=== PATIENT | female | born 1945 | race Caucasian/White ===

== ENCOUNTER 2016-08-02 16:39 | Inpatient (IN) | payer MEDICARE, BC ==
[~2016-08-02] VITALS: Ht 154.9 cm; Wt 50.8 kg
[2016-08-02] VITALS (273 sets, daily range): BP systolic 172; BP diastolic 90–91; PULSE 114; TEMP 98; O2SAT 84–100
[~2016-08-02 16:39] MED LIST: ADVAIR 250/28 DISKU1 IH; AEROSOL THERAPY1 DEV; ALEVE220 MG PO; AMOXICILLIN 8751 TAB PO; ARCAPTA IH; ASMANEX TW0.22 MG/A1 IH; ASPIRIN 32325 MG/TAB PO; ASPIRIN E.C. 8181 MG PO; ASTHMANEX INH; ATROVENT I0.2 MG/1 M IH; BIOTENE MOIST44.3 ML PO; CARVEDILOL12.5 MG PO; CEFTIN 250250 MG/TAB PO; CELEXA 20MG20 MG/TAB PO; CELEXA40 MG PO; CITALOPRAM10 MG PO; CITALOPRAM20 MG PO; CLINDAMYCIN300 MG PO; CLONAZEPAM1 MG PO; COMBIVENT1 ARO IH; DALIRESP500 MCG PO; DUONEB 3 MG/3 ML3 ML IH; ENSURE PO; FLONASE NASAL S16 GM NS; GABAPENTIN100 M1 PO; IPRATROPIUM BROM3 M1 IH; KLONOPIN 1MG1 MG PO; KLONOPIN WAFERS1 MG PO; KLONOPIN2 MG PO; LEVAQUIN 750MG750 M1 PO; LIDODERM PATCH TP; LIPITOR 10MG10 MG PO; MECLIZINE25 MG PO; MUCINEX 60600 MG/TA1 PO; MUCINEX600 M1 PO; MULTIPLE VITAMI1 CAP PO; NAPROSYN 2250 MG/TAB PO; NORCO 325 MG-51 TAB PO; OMEPRAZOLE20 MG PO; OXYCODONE5 M1 PO; OXYCODONE5 MG PO; PERCOCET 325 MG1 TA2; PERCOCET 325 MG1 TA2 PO; PERCR 7.5 PO; PERFOROMIS20 MCG/2 M IH; PILOCARPINE; PILOCARPINE 4% OP; PREDNISONE 5MG5 MG PO; PREDNISONE20 MG PO; PRILOSEC 20MG20 MG PO; PROVENTIL0.09 MG/A1 IH; PROVENTIL0.09 MG/AC IH; PULMICORT0.25 MG/2 IH; PULMICORT0.5 MG/2 M IH; REMERON 15M15 MG/TA1 PO; RT SPIRIVA18 MCG IH; SIMVASTATIN20 MG PO; SINGULAIR 110 MG/TAB PO; SINGULAIR10 MG PO; STOOL SOFTNER; TENORMIN 2525 MG/TAB PO; THEOPHYLLINE PO; TRIAZOLAM0.25 MG PO; TUDORZA IH; VALTREX1 GM PO; VENTOLIN0.09 MG IH; ZITHROMAX Z PA250 MG PO; ZOCOR 20MG20 MG PO; ZOFRAN 4MG T4 MG/TAB PO; [UNRECOGNIZED DRUG - OTHER] INH; [UNRECOGNIZED DRUG - OTHER] INH; [UNRECOGNIZED DRUG - OTHER] OP; asthmanex INH
[2016-08-02 16:58] LABS: ARTERIAL BLD GAS O2 SATURATION 97.1 % (92-100); ARTERIAL BLD GAS TCO2 CT 34.1; ARTERIAL BLOOD GAS BASE EXCESS 4.2 (-2-2); ARTERIAL BLOOD GAS HCO3 32.1 meq/L (22-26); ARTERIAL BLOOD GAS PHT 7.32 C (7.35-7.45); ARTERIAL BLOOD GAS PO2 103.7 mmHg (80-100); ARTERIAL BLOOD GAS PO2T 103.7 (80-100); ARTERIAL BLOOD GAS pH 7.32 (7.35-7.45); OXYHEMOGLOBIN 93.9 %
[2016-08-02 16:59] LABS: ATS? YES
[2016-08-02 17:04] LABS: BASO % 0.5 % (0.0-2.0); EOS # 0.3 (0.0-0.7); EOS % 3.7 % (0-4.0); GRAN # 5.8 (1.4-6.5); GRAN % 69.4 % (42.2-75.2); HEMATOCRIT 38.9 % (37.0-47.0); HEMOGLOBIN 13.2 g/dl (12.5-16.0); LYMPH # 1.3 (1.2-3.4); LYMPH % 15.9 % (20.0-51.0); MEAN CELL VOLUME 95 fl (80.0-100.0); MEAN CORPUSCULAR HEMOGLOBIN 32 pg (27.0-31.0); MEAN CORPUSCULAR HGB CONC 34 g/dl (33.0-37.0); MEAN PLATELET VOLUME 9.4 fl (7.4-10.4); MONO # 0.9 (0.1-0.6); MONO % 10.3 % (1.7-9.3); PLATELET COUNT 317 K/mm3 (130-400); RED BLOOD COUNT 4.09 M/mm3 (4.10-5.30); REDCELL DISTRIBUTION WIDTH-CV 12.1 % (11.5-14.5); WHITE BLOOD COUNT 8.4 K/mm3 (4.8-10.8)
[2016-08-02 17:05] LABS: PROTHROMBIN TIME 10.6 SECONDS (9.7-12.8)
[2016-08-02 17:14] LABS: ADJUSTED CALCIUM 9.1 mg/dL (8.4-10.2); ALBUMIN 4.1 gm/dL (3.5-5.0); BILIRUBIN,TOTAL 0.9 mg/dL (0.0-1.0); CALCIUM 9.2 mg/dL (8.4-10.2); CREATININE, serum 0.42 mg/dL (0.52-1.25); POTASSIUM 4.7 mmol/L (3.4-5.0); TOTAL PROTEIN 7.2 gm/dL (6.4-8.2)
[2016-08-02 17:25] LABS: TROPONIN-I 0.014 ng/mL (0.000-0.034)
[2016-08-02] MEDS ORDERED: COLACE 100100 MG/CAP PO (17:28)
[2016-08-02] MEDS ORDERED: PERFOROMIS20 MCG/2 M IH (17:29)
[2016-08-02] MEDS ORDERED: ASPIRIN E.C. 8181 MG PO (17:40)
[2016-08-02] MEDS ORDERED: KLONOPIN 0.5MG0.5 MG PO (17:41)
[2016-08-02] MEDS ORDERED: CALAN120 MG PO (17:41)
[2016-08-02] MEDS ORDERED: SPIRIVA RE2.5 MCG/Ac IH (17:42)
[2016-08-02] MEDS ORDERED: NAPROSYN 2250 MG/TAB PO (17:44)
[2016-08-02 19:20] LABS: ARTERIAL BLD GAS O2 SATURATION 94.8 % (92-100); ARTERIAL BLD GAS TCO2 CT 32.7; ARTERIAL BLOOD GAS HCO3 30.8 meq/L (22-26); ARTERIAL BLOOD GAS PHT 7.31 C (7.35-7.45); ARTERIAL BLOOD GAS pH 7.31 (7.35-7.45); OXYHEMOGLOBIN 92.2 %
[2016-08-02 19:21] LABS: ALLEN TEST YES; ALLENS TEST RESULT PASS; ATS? YES
[2016-08-03] VITALS (1294 sets, daily range): BP systolic 130–155; BP diastolic 70–84; PULSE 95–110; TEMP 95.2–99; O2SAT 70–100
[2016-08-03 01:04] LABS: ARTERIAL BLD GAS O2 SATURATION 91.3 % (92-100); ARTERIAL BLD GAS TCO2 CT 31.9; ARTERIAL BLOOD GAS BASE EXCESS 0.9 (-2-2); ARTERIAL BLOOD GAS HCO3 29.8 meq/L (22-26); ARTERIAL BLOOD GAS PHT 7.26 C (7.35-7.45); ARTERIAL BLOOD GAS PO2 65.8 mmHg (80-100); ARTERIAL BLOOD GAS PO2T 65.8 (80-100); ARTERIAL BLOOD GAS pH 7.26 (7.35-7.45); OXYHEMOGLOBIN 89.5 %
[2016-08-03 01:07] LABS: ALLEN TEST YES; ALLENS TEST RESULT PASS; ATS? YES
[2016-08-03 03:14] LABS: ARTERIAL BLD GAS O2 SATURATION 94.3 % (92-100); ARTERIAL BLD GAS TCO2 CT 31.6; ARTERIAL BLOOD GAS BASE EXCESS -0.4 (-2-2); ARTERIAL BLOOD GAS HCO3 29.3 meq/L (22-26); ARTERIAL BLOOD GAS PHT 7.22 C (7.35-7.45); ARTERIAL BLOOD GAS PO2 78.2 mmHg (80-100); ARTERIAL BLOOD GAS PO2T 78.2 (80-100); ARTERIAL BLOOD GAS pH 7.22 (7.35-7.45); OXYHEMOGLOBIN 92.8 %
[2016-08-03 03:16] LABS: ALLEN TEST YES; ALLENS TEST RESULT PASS; ATS? YES
[2016-08-03 04:23] LABS: PH 6 (5-8); URINE APPEARANCE Hazy; URINE BACTERIA Rare /hpf; URINE BILIRUBIN Negative (NEGATIVE); URINE BLOOD 1+ (NEGATIVE); URINE COLOR Yellow; URINE GLUCOSE Negative (NEGATIVE); URINE KETONE 1+ (NEGATIVE); URINE UROBILINOGEN Negative (NEGATIVE); URINE WBC 0-2 /hpf
[2016-08-03 05:34] LABS: HEMATOCRIT 39.1 % (37.0-47.0); HEMOGLOBIN 13.1 g/dl (12.5-16.0); MEAN CELL VOLUME 97 fl (80.0-100.0); MEAN CORPUSCULAR HEMOGLOBIN 33 pg (27.0-31.0); MEAN CORPUSCULAR HGB CONC 34 g/dl (33.0-37.0); MEAN PLATELET VOLUME 9.2 fl (7.4-10.4); PLATELET COUNT 289 K/mm3 (130-400); RED BLOOD COUNT 4.03 M/mm3 (4.10-5.30); REDCELL DISTRIBUTION WIDTH-CV 12.3 % (11.5-14.5); WHITE BLOOD COUNT 3.6 K/mm3 (4.8-10.8)
[2016-08-03 05:35] LABS: ARTERIAL BLD GAS O2 SATURATION 96.7 % (92-100); ARTERIAL BLD GAS TCO2 CT 30.3; ARTERIAL BLOOD GAS BASE EXCESS 0.2 (-2-2); ARTERIAL BLOOD GAS HCO3 28.4 meq/L (22-26); ARTERIAL BLOOD GAS PHT 7.27 C (7.35-7.45); ARTERIAL BLOOD GAS PO2 95.8 mmHg (80-100); ARTERIAL BLOOD GAS PO2T 95.8 (80-100); ARTERIAL BLOOD GAS pH 7.27 (7.35-7.45); OXYHEMOGLOBIN 95.2 %
[2016-08-03 05:36] LABS: ALLEN TEST YES; ALLENS TEST RESULT PASS; ATS? YES
[2016-08-03 05:49] LABS: CREATININE, serum 0.44 mg/dL (0.52-1.25); MAGNESIUM 1.7 mg/dL (1.6-2.3); POTASSIUM 4.5 mmol/L (3.4-5.0)
[2016-08-03 05:55] LABS: ADD PATHOLOGY DIFF REVIEW NO
[2016-08-03 06:03] LABS: NEUTROPHILS 94 % (42.0-75.2)
[2016-08-03 06:04] LABS: BAND 2 % (0-10); PLATELET ESTIMATE NORMAL (NORMAL); TOTAL CELLS COUNTED 100
[2016-08-03 06:20] LABS: THYROID STIMULATING HORMONE 0.65 uIU/mL (0.465-4.680)
[2016-08-04] VITALS (1258 sets, daily range): BP systolic 113–159; BP diastolic 74–89; PULSE 102–115; TEMP 97.2–98.3; O2SAT 55–100
[2016-08-04 06:11] LABS: GRAN % 86.3 % (42.2-75.2); LYMPH # 0.4 (1.2-3.4); LYMPH % 7.5 % (20.0-51.0); MEAN CELL VOLUME 99 fl (80.0-100.0); MEAN CORPUSCULAR HGB CONC 33 g/dl (33.0-37.0); MEAN PLATELET VOLUME 9.6 fl (7.4-10.4); MONO # 0.3 (0.1-0.6); MONO % 5.8 % (1.7-9.3); PLATELET COUNT 277 K/mm3 (130-400); RED BLOOD COUNT 3.29 M/mm3 (4.10-5.30); REDCELL DISTRIBUTION WIDTH-CV 12.6 % (11.5-14.5); WHITE BLOOD COUNT 4.7 K/mm3 (4.8-10.8)
[2016-08-04 06:18] LABS: CALCIUM 8.9 mg/dL (8.4-10.2); CREATININE, serum 0.48 mg/dL (0.52-1.25)
[2016-08-04 06:21] LABS: HEMATOCRIT 32.6 % (37.0-47.0); HEMOGLOBIN 10.7 g/dl (12.5-16.0); MEAN CORPUSCULAR HEMOGLOBIN 33 pg (27.0-31.0)
[2016-08-04 06:26] LABS: POTASSIUM 4.5 mmol/L (3.4-5.0)
[2016-08-04 07:21] LABS: ARTERIAL BLD GAS O2 SATURATION 97.8 % (92-100); ARTERIAL BLD GAS TCO2 CT 34.8; ARTERIAL BLOOD GAS BASE EXCESS 6.3 (-2-2); ARTERIAL BLOOD GAS PHT 7.37 C (7.35-7.45); ARTERIAL BLOOD GAS PO2 116.9 mmHg (80-100); ARTERIAL BLOOD GAS PO2T 116.9 (80-100); ARTERIAL BLOOD GAS pH 7.37 (7.35-7.45); OXYHEMOGLOBIN 96.6 %
[2016-08-04 07:22] LABS: ATS? YES
[2016-08-05] VITALS (1281 sets, daily range): BP systolic 136–184; BP diastolic 73–95; PULSE 100–114; TEMP 97–99.3; O2SAT 61–100
[2016-08-05 05:07] LABS: ARTERIAL BLD GAS O2 SATURATION 95.3 % (92-100); ARTERIAL BLD GAS TCO2 CT 35.6; ARTERIAL BLOOD GAS BASE EXCESS 7.5 (-2-2); ARTERIAL BLOOD GAS HCO3 33.8 meq/L (22-26); ARTERIAL BLOOD GAS PO2 76.3 mmHg (80-100); ARTERIAL BLOOD GAS PO2T 76.3 (80-100); OXYHEMOGLOBIN 94.6 %
[2016-08-05 05:16] LABS: ALLEN TEST YES; ALLENS TEST RESULT PASS; ATS? YES
[2016-08-05 05:55] LABS: CALCIUM 8.9 mg/dL (8.4-10.2); CREATININE, serum 0.45 mg/dL (0.52-1.25); POTASSIUM 4.6 mmol/L (3.4-5.0)
[2016-08-06] VITALS (466 sets, daily range): BP systolic 131–158; BP diastolic 71–86; PULSE 86–106; TEMP 97.2–99.4; O2SAT 84–100
[2016-08-07 05:26] LABS: ARTERIAL BLD GAS O2 SATURATION 97.6 % (92-100); ARTERIAL BLD GAS TCO2 CT 40.5; ARTERIAL BLOOD GAS BASE EXCESS 11.9 (-2-2); ARTERIAL BLOOD GAS HCO3 38.6 meq/L (22-26); ARTERIAL BLOOD GAS PHT 7.42 C (7.35-7.45); ARTERIAL BLOOD GAS PO2 114.9 mmHg (80-100); ARTERIAL BLOOD GAS PO2T 114.9 (80-100); ARTERIAL BLOOD GAS pH 7.42 (7.35-7.45); ATS? YES; OXYHEMOGLOBIN 96.8 %
[2016-08-07 05:27] LABS: ALLEN TEST YES; ALLENS TEST RESULT PASS
[2016-08-07 05:44] VITALS: BP 131/67; PULSE 80; TEMP 97.9
[2016-08-07 07:52] VITALS: BP 150/71; PULSE 89; TEMP 97.9
[2016-08-07 11:52] VITALS: BP 154/71; PULSE 106; TEMP 98.8
[2016-08-07 15:10] VITALS: BP 149/72; PULSE 109; TEMP 98.5
[2016-08-07 20:16] VITALS: BP 143/75; PULSE 107; TEMP 98.3
[2016-08-08 00:02] VITALS: BP 129/69; PULSE 97; TEMP 97.7
[2016-08-08 05:21] VITALS: BP 124/74; PULSE 92; TEMP 97.6
[2016-08-08 07:51] VITALS: BP 143/73; PULSE 87; TEMP 98
[2016-08-08] MEDS ORDERED: CLARITIN 1010 MG/TAB PO (10:29)
[2016-08-08] MEDS ORDERED: LEVAQUIN 5500 MG/TA1 PO (10:31)
[2016-08-08] MEDS ORDERED: PREDNISONE20 MG PO (10:32)
[2016-08-08] MEDS ORDERED: FOLIC ACID 11 MG/TA1 PO (10:33)
[2016-08-08] MEDS ORDERED: THIAMINE 1100 MG/TAB PO (10:33)
[2016-08-08] MEDS ORDERED: MULTI VITAMINS1 TAB PO (10:34)
[2016-08-08 12:30] VITALS: BP 122/69; PULSE 105; TEMP 98
== END 2016-08-08 15:39 | disposition home health service (06) | DRG 189 ==
LOC: COL.ER 16:39 → ICU 17:33 → IMCU 08-04 12:27 → ICU 08-04 12:27 → IMCU 08-04 18:05 → MEDICAL 08-06 17:40
PROVIDERS: Emergency Medicine; Family Medicine; Internal Medicine Pulmonary Disease; Nurse Practitioner Family
DX: J96.01 Acute respiratory failure with hypoxia (principal); E43 Unspecified severe protein-calorie malnutrition; J44.1 Chronic obstructive pulmonary disease with (acute) exacerbation; E87.1 Hypo-osmolality and hyponatremia; Z66 Do not resuscitate; J96.02 Acute respiratory failure with hypercapnia; I16.0 Hypertensive urgency; F17.210 Nicotine dependence, cigarettes, uncomplicated; Z85.118 Personal history of other malignant neoplasm of bronchus and lung; E87.8 Other disorders of electrolyte and fluid balance, not elsewhere classified; F41.9 Anxiety disorder, unspecified
CPT/HCPCS: 99223-AI; 99232-AI; 99233-AI; 99239; A4315; C9113; J1650; J1956; J2060; J2270; J2405; J2920; J2930; J7030; J7512

== ENCOUNTER 2016-09-07 00:06 | Inpatient (IN) | payer MEDICARE, BC ==
[~2016-09-07] VITALS: Ht 154.9 cm; Wt 42.5 kg
[~2016-09-07 00:06] MED LIST changes: +CALAN120 MG PO; +CLARITIN 1010 MG/TAB PO; +COLACE 100100 MG/CAP PO; +FOLIC ACID 11 MG/TA1 PO; +KLONOPIN 0.5MG0.5 MG PO; +LEVAQUIN 5500 MG/TA1 PO; +MULTI VITAMINS1 TAB PO; +SPIRIVA RE2.5 MCG/Ac IH; +THIAMINE 1100 MG/TAB PO
[2016-09-07 01:02] LABS: ARTERIAL BLD GAS O2 SATURATION 98.3 % (92-100); ARTERIAL BLOOD GAS BASE EXCESS 0.9 (-2-2); ARTERIAL BLOOD GAS HCO3 27.4 meq/L (22-26); ARTERIAL BLOOD GAS pH 7.35 (7.35-7.45)
[2016-09-07 01:03] LABS: ALLEN TEST NO; ARTERIAL BLOOD GAS PO2 143.2 mmHg (80-100); ATS? YES
[2016-09-07 01:28] LABS: BASO % 0.5 % (0.0-2.0); EOS % 0.7 % (0-4.0); GRAN # 4.8 (1.4-6.5); GRAN % 80.6 % (42.2-75.2); HEMATOCRIT 44.8 % (37.0-47.0); HEMOGLOBIN 14.8 g/dl (12.5-16.0); LYMPH # 0.7 (1.2-3.4); LYMPH % 11.7 % (20.0-51.0); MEAN CELL VOLUME 100 fl (80.0-100.0); MEAN CORPUSCULAR HEMOGLOBIN 33 pg (27.0-31.0); MEAN CORPUSCULAR HGB CONC 33 g/dl (33.0-37.0); MEAN PLATELET VOLUME 9.5 fl (7.4-10.4); MONO # 0.4 (0.1-0.6); MONO % 6.2 % (1.7-9.3); PLATELET COUNT 324 K/mm3 (130-400); RED BLOOD COUNT 4.47 M/mm3 (4.10-5.30); REDCELL DISTRIBUTION WIDTH-CV 12.9 % (11.5-14.5)
[2016-09-07] MEDS ORDERED: ATARAX 25MG25 MG/TAB PO (01:30)
[2016-09-07 01:33] LABS: INR 0.9 (0.8-3.0); PROTHROMBIN TIME 9.9 SECONDS (9.7-12.8)
[2016-09-07 01:50] LABS: ADJUSTED CALCIUM 9.9 mg/dL (8.4-10.2); ALANINE AMINOTRANSFERASE 25 U/L (9-52); ALBUMIN 4.2 gm/dL (3.5-5.0); ALKALINE PHOSPHATASE 74 U/L (50-136); ANION GAP 9 mmol/L (7-16); BILIRUBIN,TOTAL 0.7 mg/dL (0.0-1.0); BLOOD UREA NITROGEN 7 mg/dL (7-17); CALCIUM 10.1 mg/dL (8.4-10.2); CARBON DIOXIDE 33 mmol/L (22-30); CHLORIDE 94 mmol/L (98-107); CREATININE, serum 0.51 mg/dL (0.52-1.25); GLUCOSE 119 mg/dL (74-106); POTASSIUM 4.7 mmol/L (3.4-5.0); SODIUM 136 mmol/L (137-145); TOTAL PROTEIN 6.9 gm/dL (6.4-8.2)
[2016-09-07 02:01] LABS: B-TYPE NATRIURETIC PEPTIDE 132 pg/mL (0-125)
[2016-09-07 02:11] LABS: TROPONIN-I < 0.012 ng/mL (0.000-0.034)
[2016-09-07 05:18] VITALS: BP 168/99; PULSE 111; TEMP 98.9
[2016-09-07 07:50] VITALS: BP 136/73; PULSE 106; TEMP 97.8
[2016-09-07 11:53] VITALS: BP 153/69; PULSE 110; TEMP 98
[2016-09-07 15:37] VITALS: BP 158/78; PULSE 116; TEMP 97.6
[2016-09-07 20:11] VITALS: BP 155/70; PULSE 118; TEMP 97.5
[2016-09-08] VITALS (7 sets, daily range): BP systolic 137–174; BP diastolic 65–89; PULSE 97–112; TEMP 97.1–99.1
[2016-09-08 06:56] LABS: ARTERIAL BLD GAS O2 SATURATION 97.7 % (92-100); ARTERIAL BLOOD GAS BASE EXCESS 5.5 (-2-2); ARTERIAL BLOOD GAS HCO3 31.8 meq/L (22-26); ARTERIAL BLOOD GAS PO2 108.2 mmHg (80-100)
[2016-09-08 06:57] LABS: ALLEN TEST YES; ALLENS TEST RESULT PASS; ATS? YES
[2016-09-09 04:39] VITALS: BP 136/60; PULSE 99; TEMP 98.2
[2016-09-09 07:40] VITALS: BP 169/77; PULSE 105; TEMP 97.2
[2016-09-09 11:32] VITALS: BP 157/77; PULSE 117; TEMP 98.1
[2016-09-09 15:54] VITALS: BP 145/82; PULSE 116; TEMP 98.6
[2016-09-09 20:07] VITALS: BP 186/84; PULSE 114; TEMP 97.7
[2016-09-10] VITALS (7 sets, daily range): BP systolic 135–161; BP diastolic 59–86; PULSE 74–116; TEMP 97.6–98.9
[2016-09-11 04:36] VITALS: BP 119/59; PULSE 65; TEMP 99
[2016-09-11 07:57] VITALS: BP 139/62; PULSE 101; TEMP 98.2
[2016-09-11 11:41] VITALS: BP 115/69; PULSE 108; TEMP 98.4
[2016-09-11 16:12] VITALS: BP 143/63; PULSE 111; TEMP 98.4
[2016-09-11 20:10] VITALS: BP 120/85; PULSE 116; TEMP 97.5
[2016-09-12 00:45] VITALS: BP 112/67; PULSE 98; TEMP 97.7
[2016-09-12 04:30] VITALS: BP 134/71; PULSE 98; TEMP 97.8
[2016-09-12 08:01] VITALS: BP 136/59; PULSE 96; TEMP 98.1
[2016-09-12 11:30] VITALS: BP 139/73; PULSE 101; TEMP 98.6
[2016-09-12 15:12] VITALS: BP 126/59; PULSE 102; TEMP 98.5
[2016-09-12] MEDS ORDERED: DOXYCYCLINE 10100 MG PO (16:52)
[2016-09-12] MEDS ORDERED: MEGACE ORAL40 MG/ML PO (16:52)
[2016-09-12] MEDS ORDERED: CARDIZEM CD 18180 MG PO (16:55)
[2016-09-12] MEDS ORDERED: PREDNISONE20 MG PO (17:02)
== END 2016-09-12 17:45 | disposition home or self-care (01) | DRG 190 ==
LOC: COL.ER 00:06 → MEDICAL 02:45
PROVIDERS: Emergency Medicine; Internal Medicine Cardiovascular Disease
DX: J44.1 Chronic obstructive pulmonary disease with (acute) exacerbation (principal); E43 Unspecified severe protein-calorie malnutrition; J96.10 Chronic respiratory failure, unspecified whether with hypoxia or hypercapnia; Z68.1 Body mass index [BMI] 19.9 or less, adult; I10 Essential (primary) hypertension; F41.9 Anxiety disorder, unspecified; F17.210 Nicotine dependence, cigarettes, uncomplicated; Z99.81 Dependence on supplemental oxygen; Z85.118 Personal history of other malignant neoplasm of bronchus and lung
CPT/HCPCS: 99223-AI; 99232-AI; 99233-AI; 99239; J0696; J1650; J2920; J2930; J7030

== ENCOUNTER 2017-07-30 16:49 | Emergency (ER) | payer MEDICARE, BC ==
[~2017-07-30] VITALS: Ht 160 cm; Wt 43.2 kg
[~2017-07-30 16:49] MED LIST changes: +ATARAX 25MG25 MG/TAB PO; +CARDIZEM CD 18180 MG PO; +DOXYCYCLINE 10100 MG PO; +MEGACE ORAL40 MG/ML PO
[2017-07-30 16:53] VITALS: TEMP 98
[2017-07-30 17:24] LABS: HEMATOCRIT 44.4 % (37.0-47.0); HEMOGLOBIN 14.7 g/dl (12.5-16.0); MEAN CELL VOLUME 102 fl (80.0-100.0); MEAN CORPUSCULAR HEMOGLOBIN 34 pg (27.0-31.0); MEAN CORPUSCULAR HGB CONC 33 g/dl (33.0-37.0); PLATELET COUNT 274 K/mm3 (130-400); RED BLOOD COUNT 4.36 M/mm3 (4.10-5.30); REDCELL DISTRIBUTION WIDTH-CV 13.2 % (11.5-14.5)
[2017-07-30 17:33] LABS: ALANINE AMINOTRANSFERASE 24 U/L (9-52); ALBUMIN 4.3 gm/dL (3.5-5.0); ALKALINE PHOSPHATASE 111 U/L (50-136); ANION GAP 8 mmol/L (7-16); AST,SGOT 20 U/L (15-37); BILIRUBIN,TOTAL 0.5 mg/dL (0.0-1.0); BLOOD UREA NITROGEN 10 mg/dL (7-17); CALCIUM 9.2 mg/dL (8.4-10.2); CARBON DIOXIDE 34 mmol/L (22-30); CHLORIDE 96 mmol/L (98-107); GLUCOSE 149 mg/dL (74-106); POTASSIUM 4.7 mmol/L (3.4-5.0); SODIUM 138 mmol/L (137-145); TOTAL PROTEIN 7.2 gm/dL (6.4-8.2)
[2017-07-30 17:47] LABS: TROPONIN-I < 0.012 ng/mL (0.000-0.034)
[2017-07-30 17:53] LABS: BAND 14 % (0-10); LYMPHOCYTE 3 % (20.0-51.0); NEUTROPHILS 79 % (42.0-75.2); PLATELET ESTIMATE NORMAL (NORMAL)
[2017-07-30 20:10] VITALS: BP 140/70; PULSE 103
== END 2017-07-30 20:10 | disposition short-term general hospital (02) ==
LOC: COL.ER 16:49
PROVIDERS: Emergency Medicine
DX: J44.1 Chronic obstructive pulmonary disease with (acute) exacerbation (principal); F17.210 Nicotine dependence, cigarettes, uncomplicated; Z88.2 Allergy status to sulfonamides; Z99.81 Dependence on supplemental oxygen; Z98.890 Other specified postprocedural states; Z79.52 Long term (current) use of systemic steroids; Z79.82 Long term (current) use of aspirin
CPT/HCPCS: J0456; J0696; J3475; J7050